=== PATIENT | female | born 1950 | race Caucasian/White ===

== ENCOUNTER 2017-05-19 15:04 | Inpatient (IN) ==
[2017-05-19] MEDS ORDERED: methylPREDNISolone SOD SUC 125 MG/2 ML VIAL IV STA (15:47)
[2017-05-19] MEDS ORDERED: SODIUM CHLORIDE 0.9% 1,000 ML IV STA ×2 (15:47→17:29)
[2017-05-19] MEDS ORDERED: methylPREDNISolone SOD SUC 125 MG/2 ML VIAL ONE (15:57)
--- NOTE | 2017-05-19 15:57 | Emergency Department Note ---
Arrival - Arrival Chief Complaint: Weakness Stated Complaint: weakness ED Nursing Triage Note: Generalized weakness and decreased PO intake [facility] Mode of Arrival: Stretcher Limitations: No Limitations Source: Patient Time Seen by Provider: 05/19/17 15:46 - History of Present Illness HPI Narrative: This 66-year-old white female presents 2 days post discharge with complaints of profound weakness and multiple minor complaints with history of discharge 2 days ago for treatment of hypotension from volume depletion by aggressive dialysis. Of note she dialyzed yesterday on her standard Saturday, , Saturday routine. She does not recall if this was an overly aggressive dialysis as she experienced previously; however, she did not began to feel bad again until after dialysis had been completed. She denies chest pain, shortness of breath, nausea, vomiting, chills, or fever. She still urinates and does relate in the past 24 hours she has felt like there is some burning with passage urine. At the moment, although mildly hypotensive, she is medically stable at rest. Onset (ago): hour(s) (Onset of symptoms 24 hours prior to presentation) Date of Last Menstrual Period: hyster Allergies/Adverse Reactions: Allergies Allergy/AdvReac Type Severity Reaction Status Date / Time codeine Allergy Unknown/Unable Verified 11/14/15 20:29 to obtain Home Medications: Home Medications Medication Instructions Recorded Confirmed Type Calcium Acetate 2 tablet PO TID W/MEALS 11/12/15 05/10/17 History Biotin 5,000 mcg PO DAILY 05/10/17 05/10/17 History Insulin Glargine [Lantus] 34 unit SUBCUT BEDTIME 05/10/17 05/10/17 History Levothyroxine Tab [Synthroid Tab] 112 mcg PO DAILY@0700 #30 tablet 05/17/17 Rx Midodrine [Proamatine] 5 mg PO TID #90 tablet 05/17/17 Rx Review of System - Review of System 12 point system: reviewed and no additional remarkable complaints except as stated - Review of System Constitutional: Present: as per HPI Musculoskeletal: Present: as per HPI Medical,Surgical,& Family Hx - Medical History Cardio: No history of: Aneurysm, Cardiac Dysrhythmia, Cerebrovascular Disease, Congenital Heart Disease, CHF, CAD, Hypertension, [place], Pacemaker, PVD, Valvular Heart Disease, Cardiovascular Problems Neurology: No history of: Brain Aneurysm, Cerebral Hemorrhage, Cerebrovascular Accident , Cerebral Palsy, Dementia, Migraine, Multiple Sclerosis, Parkinson's Disease, Peripheral Neuropathy, Seizures, TIA, Vertigo, Neurologocal Cancer Endocrine: History of: Diabetes Mellitus (IDDM), Thyroid Disorder ( HYPOTHYROIDISM) No history of: Dyslipidemia Respiratory: History of: Obstructive Sleep Apnea, Respiratory Problems (SOB) No history of: Asthma, Bronchitis, COPD, Intubation, Pulmonary Embolism, Pulmonary Hypertension, Pneumonia, Lung Cancer Renal: History of: Dialysis, Renal Failure, Renal Problems - Surgical History Cardiac Surgeries: Sugical HX of: Cardiac Catheterization (negative results in 1994) Patient Denies: Femoral-Popliteal Bypass Graft, Cardiac Surgery, Carotid Endarterectomy, Internal Defibrillator, Vascular Access Devices Thoracic Surgeries: Patient denies;: Lobectomy Neurologic Surgeries: Patient denies: Brain Aneurysm, Cerebral Hemorrhage, Neurologic Surgery HEENT Surgeries: Patient denies: Carotid Endarterectomy Abdominal Surgeries: Patient denies: Splenectomy Reproductive Surgeries: Surgical HX of;: Section, Hysterectomy Patient denies;: Genitourinary Surgery - Family History Family History: Denies;: Family Heart Disease - Social History Smoking Status: Never smoker Frequency of Alcohol Use: None Type of Drug Use: None Exam Physical Examination: GENERAL: Well developed, well nourished elderly white female in no acute distress. HEENT: Normocephalic. No trauma. Moist mucous membranes. EOMI. PERRLA. ENT NML NECK: Supple. No adenopathy. CARDIAC: Regular. No murmurs. Heart rate 82 CHEST: Clear to auscultation. No respiratory distress. O2 sat 94 per ABDOMEN: Soft. Nontender. Active bowel sounds. EXTREMITIES: No trauma. Normal ROM. No pedal edema. AV fistula right upper extremity with good thrill SKIN: No diaphoresis. No rash. Warm and dry. NEURO: Alert. Oriented 3. Motor, sensory, vibratory intact. No focal deficits. Vital Signs: Vital Signs Temperature 97.0 F L 05/19/17 15:26 Pulse Rate 79 05/19/17 16:00 Respiratory Rate 17 05/19/17 16:00 Blood Pressure 74/42 05/19/17 16:00 O2 Sat by Pulse Oximetry 100 05/19/17 16:00 Course - Reevaluation(s) Reevaluation #1: Advised patient of need for hospitalization. - Consultations Consultation #1: Discussed with hospitalist service who will admit for further evaluation treatment. Results - Labs CBC & BMP: 05/19/17 15:33 05/19/17 15:33 Labs: I reviewed the laboratory noted the elevated lactic acid, alkaline phosphatase, glucose, and bump in troponin. As well as expected renal abnormalities. Likewise noted was the infected urine. - Impressions EKG: Sinus rhythm at [address] interval and evidence of right bundle branch block with left axis deviation. Old anterior IA noted. Nonspecific ST changes with no acute injury pattern noted. - Diagnostic Findings Procedure: Chest x-ray: image reviewed by me, report reviewed by me (Borderline cardiomegaly with resolution of right pleural effusion on interval study but persistent of left pleural effusion.) Disposition Clinical Impression: Urosepsis, Cystitis, Hypotension, Left pleural effusion, Dialysis dependent renal failure, Diabetes Case discussed with: patient Disposition: Still a Patient Condition: Guarded Time of Disposition: 17:04
[2017-05-19 16:01] LABS: Basophils # 0.1 10*3/uL (0.0-0.2); Basophils % 0.7 % (0.0-0.8); Eosinophils # 0.1 10*3/uL (0.0-0.87); Eosinophils % 0.7 % (0.00-10.9); Hematocrit 41.3 VOL% (35.7-47.0); Hemoglobin 13.6 GM/DL (12.0-16.0); Immature Granulocytes % 0.4 %; Immature Granulocytes Absolute 0.03 #; Lymphocytes # 1.2 10*3/uL (1.4-4.0); Lymphocytes % 15.4 % (21.3-54.2); Mean Corpuscular HGB Conc 32.9 GM/DL (32-36); Mean Corpuscular Hemoglobin 35 PG (27-34); Mean Corpuscular Volume 105.6 FL (87-102); Mean Platelet Volume 12.4 FL (9.6-12.0); Monocytes % 13.3 % (1.7-12.7); Neutrophils # 5.3 10*3/uL (1.4-7.4); Neutrophils % 69.5 % (38.7-73.9); Platelet Count 130 T/CUMM (130-400); Red Blood Count 3.91 MC/CUMM (3.8-5.5); Red Cell Distribution Width 17.4 % (9.3-17.3); White Blood Count 7.6 T/CUMM (4-12)
[2017-05-19 16:09] LABS: INR 1.1; PT Patient Result 11.6 SECS
[2017-05-19] MEDS ORDERED: LEVOFLOXACIN INJ 750 MG in PREMIX 1 EACH IV STA (16:12)
[2017-05-19 16:13] LABS: Alanine Aminotransferase 102 U/L (13-56); Albumin 3.3 G/DL (3.4-5.0); Alkaline Phosphatase 603 U/L (45-117); Amylase 29 U/L (25-115); Aspartate Amino Transferase 55 U/L (0-37); Blood Urea Nitrogen 36 MG/DL (7-18); Calcium 9.8 MG/DL (8.5-10.1); Free T4 (Free Thyroxine) 1.51 NG/DL (0.76-1.46); Glucose 353 MG/DL (74-106); Osmolality,Calculated 289.2 MOS/KG (273-304); Potassium 5.1 MMOL/L (3.5-5.1); Sodium 134 MMOL/L (136-145)
--- NOTE | 2017-05-19 16:13 | EKG Report ---
Stationary ECG Study [facility] ER Test Date: 05/19/2017 4:11:18 PM Pat Name: JU KELLY Department: Room: Gender: F Vending Machine Technician: : 1950 Requested by: Washington Myers Order Number: [id number] Reading MD: DESMOND GUADALUPE Intervals [place] Rate: 79 P: 36 MS: 204 QRS: -82 QRSD: 145 T: 78 QT: 437 QTc: 471 Interpretive Statements SINUS RHYTHM MARKED LEFT AXIS DEVIATION RIGHT BUNDLE BRANCH BLOCK Electronically Signed On 05-19-17 16:20:24 CDT by DESMOND GUADALUPE [email or web address]
[2017-05-19] MEDS ORDERED: LEVOFLOXACIN INJ 150 ML IV ONE (16:19)
[2017-05-19 16:21] LABS: Apearance,Urine CLOUDY (Clear); Bacteria,Urine Few /HPF (Few); Bilirubin,Urine Negative (Negative); Blood, Urine Moderate mg/dL (Negative); Glucose,Urine (UA) Negative (Negative); Ketones,Urine 5 mg/dL (Negative); Nitrite,Urine Negative (Negative); Protein,Urine 30 MG/DL; RBC,Urine 672 /HPF (0-4); Urine Color Amber (Yellow); Urine Specific Gravity 1.017 (1.001-1.035); Urine Urobilinogen < 2.0 EU/DL (0.2-1.0); WBC,Urine 50838 /HPF (0-6)
[2017-05-19] MEDS ORDERED: NOREPINEPHRINE 4 MG/4 ML VIAL IV ONE (16:49)
[2017-05-19] MEDS: NOREPINEPHRINE 8 MG in SODIUM CHLORIDE 0.9% 242 ML IV SCH (16:55)
--- NOTE | 2017-05-19 17:03 | XRay Report ---
Portable chest May 19, 2017 Patient: Fever shortness of breath Comparison images dated May 16, 2017 Findings: Cardiomediastinal contours are stable. Slight worsening of the central pulmonary vasculature prominence and overall interstitial pattern. Bilateral pleural effusions, likely minimally improved on the right. No acute osseous abnormalities. Impression: 1. Increase to the central pulmonary vascular prominence and perihilar interstitial pattern suggesting early cardiac decompensation. 2. Bilateral pleural effusions, minimally improved on the right and compared with prior study PROCEDURE INTERPRETED AT [facility] DEPARTMENT OF RADIOLOGY Final Report Signed by: Miah Valdez
--- NOTE | 2017-05-19 17:44 | Hospitalist History & Physical ---
Assessment and Plan (1) Hypotension Status: Acute Assessment and plan: Pt. has history of hypotension. Hold antihypertensive meds. Place in ICU. NS Bolus. Restart midodrine. Current Visit: No (2) ESRD (end stage renal disease) on dialysis Status: Chronic Assessment and plan: Consult nephrology. Avoid nephrotoxic agents. Daily bmps. Current Visit: No (3) Diabetes mellitus Status: Acute Assessment and plan: Accuchecks achs. SSI. Diabetic diet. Current Visit: No Qualifiers: Diabetes mellitus type: type 2 Chronic kidney disease stage: on chronic dialysis (4) Generalized weakness Status: Acute Current Visit: No (5) Hypothyroid Status: Chronic Assessment and plan: Restart synthroid. Current Visit: No (6) Chest pain Status: Acute Assessment and plan: Troponin slightly elevated (could be secondary to RF). Cardiac monitoring. Will cycle enzymes and reassess. Current Visit: Yes History of Present Illness Chief complaint: weakness/hypotension History of present illness: Ms. Levin is a 66 year old white female with a history of diabetes, hypotension, end-stage renal disease on dialysis, hypo-thyroidism that presented to the ED today for further evaluation of weakness and hypotension. Patient was just recently discharged 2 days ago after a 6 day hospital stay for similar complaints. Pt. states that when she was discharged on Saturday she felt fine. Patient is an end stage renal disease patient and states she went Saturday. She was in her usual state of health until last night when she became very weak. She reports that became short of breath and she couldn't walk. Pt. also reports midsternal chest pain which she states goes into the neck. She describes the pain as intermittent and states she has had this particular pain for quite some time. She reports chills but denies fever, night sweats, n/v/ or abdominal pain. Additionally, she reports taking her blood pressure and having a "low pressure." Pt. came in for evaluation and was found to be hypotensive. Labs in ED revealed bun/creatinine of 36/4.4 (improved from last admission), lactic acid of 4.5, troponin of 0.060, and an elevated glucose of 353. Pt.'s case was discussed with Dr. Braswell and Dr. De Leon. The patient will be admitted to the hospitalist service for further evaluation and treatment. She will be placed in the ICU for close monitoring. Home Medications Medication Instructions Recorded Confirmed Type Calcium Acetate 2 tablet PO TID W/MEALS 11/12/15 05/10/17 History Biotin 5,000 mcg PO DAILY 05/10/17 05/10/17 History Insulin Glargine [Lantus] 34 unit SUBCUT BEDTIME 05/10/17 05/10/17 History Levothyroxine Tab [Synthroid Tab] 112 mcg PO DAILY@0700 #30 tablet 05/17/17 Rx Midodrine [Proamatine] 5 mg PO TID #90 tablet 05/17/17 Rx Allergies Allergy/AdvReac Type Severity Reaction Status Date / Time codeine Allergy Unknown/Unable Verified 11/14/15 20:29 to obtain Medical,Surgical,& Family Hx - Medical History Cardio: No history of: Aneurysm, Cardiac Dysrhythmia, Cerebrovascular Disease, Congenital Heart Disease, CHF, CAD, Hypertension, [place], Pacemaker, PVD, Valvular Heart Disease, Cardiovascular Problems Neurology: No history of: Brain Aneurysm, Cerebral Hemorrhage, Cerebrovascular Accident , Cerebral Palsy, Dementia, Migraine, Multiple Sclerosis, Parkinson's Disease, Peripheral Neuropathy, Seizures, TIA, Vertigo, Neurologocal Cancer Endocrine: History of: Diabetes Mellitus (IDDM), Thyroid Disorder ( HYPOTHYROIDISM) No history of: Dyslipidemia Respiratory: History of: Obstructive Sleep Apnea, Respiratory Problems (SOB) No history of: Asthma, Bronchitis, COPD, Intubation, Pulmonary Embolism, Pulmonary Hypertension, Pneumonia, Lung Cancer Renal: History of: Dialysis, Renal Failure, Renal Problems - Surgical History Cardiac Surgeries: Sugical HX of: Cardiac Catheterization (negative results in 1994) Patient Denies: Femoral-Popliteal Bypass Graft, Cardiac Surgery, Carotid Endarterectomy, Internal Defibrillator, Vascular Access Devices Thoracic Surgeries: Patient denies;: Lobectomy Neurologic Surgeries: Patient denies: Brain Aneurysm, Cerebral Hemorrhage, Neurologic Surgery HEENT Surgeries: Patient denies: Carotid Endarterectomy Abdominal Surgeries: Patient denies: Splenectomy Reproductive Surgeries: Surgical HX of;: Section, Hysterectomy Patient denies;: Genitourinary Surgery - Family History Family History: Denies;: Family Heart Disease - Social History Smoking Status: Never smoker Frequency of Alcohol Use: None Type of Drug Use: None Marital Status: Single Lives With:: Alone Functional capacity: uses cane/walker Review of systems: 10 point system reviewed - Constitutional Constitutional: Present: chills, weakness. Absent: fever(s), night sweats - EENT Eyes: Absent: blurry vision Ears: Absent: decreased hearing Nose, mouth and throat: Absent: headache(s) - Cardiovascular Cardiovascular: Present: chest pain at rest, dyspnea on exertion. Absent: edema - Respiratory Respiratory: Present: dyspnea on exertion - Gastrointestinal Gastrointestinal: Absent: abdominal pain, nausea, vomiting - Genitourinary Genitourinary: Absent: difficulty urinating (no difficulty urinating but patient did note burning sensation), urinary frequency - Musculoskeletal Musculoskeletal: Absent: back pain - Neurological Neurological: Absent: confusion, dizziness - Psychiatric Psychiatric: Present: anxiety Exam - Constitutional Vitals: Period Temp Pulse Resp BP Sys/Bustos Pulse Ox Last 24 Hr 97.0 F-97.0 F 79-82 17-20 74-81/42-55 94-100 General appearance: normal weight, mild distress - Head Head exam: Present: normal inspection, normocephalic - Eye Eye exam: Present: EOMI. Absent: scleral icterus Pupils: Present: TIM - Neck Neck exam: Present: normal inspection - Respiratory Respiratory exam: Present: clear to auscultation bilaterally. Absent: wheezes - Cardiovascular Cardiovascular exam: Present: regular rate and rhythm - GI/Abdominal GI/Abdominal exam: Present: normal bowel sounds, soft. Absent: tenderness - Extremities Exam Extremities exam: Present: normal capillary refill, full ROM. Absent: edema - Neurological Exam Neurological exam: Present: alert, oriented X3 - Psychiatric Psychiatric exam: Present: normal affect, normal mood - Skin Skin exam: Present: normal color, warm, dry Results - Labs CBC & BMP: 05/19/17 15:33 05/19/17 15:33 Lab Results: I have reviewed the past 24 hour labs
[2017-05-19] MEDS ORDERED: ACETAMINOPHEN 325 MG TABLET PO PRN (17:49)
[2017-05-19] MEDS ORDERED: SODIUM CHLORIDE 0.9% 1,000 ML IV ONE (17:49)
[2017-05-19] MEDS ORDERED: GLUCAGON 1 MG VIAL IM PRN (17:49)
[2017-05-19] MEDS: PIPERACILLIN/TAZOBACTAM 3,375 MG in SODIUM CHLORIDE 0.9% 100 ML IV SCH (19:08)
[2017-05-19] MEDS: ENOXAPARIN 30 MG/0.3 ML SYRINGE SUBCUT SCH (19:08)
[2017-05-19] MEDS: INSULIN REGULAR 100 UNIT/ML SUBCUT SCH (21:52)
[2017-05-19] MEDS: INSULIN GLARGINE 100 UNIT/ML SUBCUT SCH (21:52)
[2017-05-19] MEDS: MIDODRINE 5 MG TABLET PO SCH (22:48)
[2017-05-20] MEDS ORDERED: GENTAMICIN INJ 160 MG in SODIUM CHLORIDE 0.9% 100 ML IV ONE
[2017-05-20] MEDS: MIDODRINE 5 MG TABLET PO SCH ×4 (00:35→21:36)
[2017-05-20] MEDS: NOREPINEPHRINE 8 MG in SODIUM CHLORIDE 0.9% 242 ML IV SCH ×3 (01:11→17:11)
[2017-05-20] MEDS: PIPERACILLIN/TAZOBACTAM 3,375 MG in SODIUM CHLORIDE 0.9% 100 ML IV SCH ×2 (06:32→19:02)
[2017-05-20] MEDS: LEVOTHYROXINE 112 MCG TABLET PO SCH (06:32)
[2017-05-20] MEDS: INSULIN REGULAR 100 UNIT/ML SUBCUT SCH ×4 (08:01→21:51)
[2017-05-20] MEDS: CALCIUM ACETATE 667 MG CAPSULE PO SCH ×3 (08:04→17:16)
--- NOTE | 2017-05-20 08:08 | CT Report ---
Exam: CT head without intravenous contrast Clinical History: 66-year-old female, altered level consciousness, confusion Technique: Axial computed tomography images of the head/brain without intravenous contrast Comparison: No relevant comparisons Findings: Brain: Unremarkable. Valdez-white matter distinction maintained. No mass effect. No intra or extra-axial hemorrhage. Ventricles: Unremarkable. No ventriculomegaly. Bones/joints: Calvarium is intact Soft tissues: Unremarkable Sinuses: No active paranasal sinus process Mastoid air cells: Unremarkable visualized. Impression: 1. No acute intracranial abnormality PROCEDURE INTERPRETED AT [facility] DEPARTMENT OF RADIOLOGY Final Report Signed by: Miah Valdez
[2017-05-20] MEDS ORDERED: NON-FORMULARY MEDICATION (Biotin [Biotin] 5,000 MCG) PO SCH (09:00)
--- NOTE | 2017-05-20 09:41 | Hospitalist Progress Note ---
Assessment and Plan (1) Diabetes mellitus Status: Acute Assessment and plan: Lantus and SSI Current Visit: No Qualifiers: Diabetes mellitus type: type 2 Chronic kidney disease stage: on chronic dialysis (2) ESRD (end stage renal disease) on dialysis Status: Chronic Assessment and plan: Nephrology assisting Current Visit: No (3) Hypothyroid Status: Chronic Assessment and plan: Synthroid, decreased during her last admission last week Current Visit: No (4) Generalized weakness Status: Acute Current Visit: No (5) Hypotension Status: Acute Assessment and plan: Chronic issue Continue midodrine Continue to wean levophed Current Visit: No (6) Chest pain Status: Acute Assessment and plan: Troponin stable Denies chest pain Continue to monitor Current Visit: Yes (7) Urinary tract infection Status: Acute Assessment and plan: Moran removed today Continue zosyn f/u urine culture Current Visit: Yes Hospitalist: Subjective Interval history: Overnight patient refused to talk to staff, leading her to get a CT head, which was normal. Today she is sitting up on the side of the bed eating breakfast. Still on a small amount levophed. Exam - Constitutional Vitals: Period Temp Pulse Resp BP Sys/Bustos Pulse Ox Last 24 Hr 97.0 F-98.1 F 58-101 15-27 70-150/25-61 94-100 General appearance: normal weight - Head Head exam: Present: normocephalic, atraumatic - Eye Eye exam: Present: EOMI Pupils: Present: TIM - ENT ENT exam: Present: normal exam - Neck Neck exam: Present: normal inspection - Respiratory Respiratory exam: Present: clear to auscultation bilaterally. Absent: rhonchi, wheezes - Cardiovascular Cardiovascular exam: Present: regular rate and rhythm - GI/Abdominal GI/Abdominal exam: Present: normal bowel sounds, soft. Absent: tenderness, rebound - Extremities Exam Extremities exam: Present: normal inspection - Back Exam Back exam: Present: normal inspection - Neurological Exam Neurological exam: Present: alert, oriented X3 - Psychiatric Psychiatric exam: Present: normal affect, normal mood - Skin Skin exam: Present: warm, intact Results - Labs CBC & BMP: 05/19/17 15:33 05/19/17 15:33
[2017-05-20 11:33] LABS: Basophils # 0.1 10*3/uL (0.0-0.2); Basophils % 0.3 % (0.0-0.8); Hematocrit 41.1 VOL% (35.7-47.0); Hemoglobin 13.8 GM/DL (12.0-16.0); Immature Granulocytes % 1.5 %; Immature Granulocytes Absolute 0.27 #; Lymphocytes # 1.4 10*3/uL (1.4-4.0); Lymphocytes % 7.7 % (21.3-54.2); Mean Corpuscular HGB Conc 33.6 GM/DL (32-36); Mean Corpuscular Hemoglobin 34 PG (27-34); Mean Corpuscular Volume 102.2 FL (87-102); Mean Platelet Volume 11.6 FL (9.6-12.0); Monocytes # 1.5 10*3/uL (0.11-0.8); Monocytes % 8.4 % (1.7-12.7); Neutrophils # 14.4 10*3/uL (1.4-7.4); Neutrophils % 82.1 % (38.7-73.9); Platelet Count 148 T/CUMM (130-400); Red Blood Count 4.02 MC/CUMM (3.8-5.5); Red Cell Distribution Width 17.3 % (9.3-17.3); White Blood Count 17.6 T/CUMM (4-12)
[2017-05-20 12:25] LABS: Calcium 9.3 MG/DL (8.5-10.1); Potassium 4.9 MMOL/L (3.5-5.1)
--- NOTE | 2017-05-20 12:37 | Nephrology Consult Note ---
History of Present Illness Chief complaint: ESRD History of present illness: Ms. Lvein is a 66 year old female with ESRD secondary to diabetes. She presented with generalized weakness and hypotension. She has had chronic hypotension and is on midodrine. She had transient chest discomfort prior to admission. She currently denies chest pain or shortness of breath. Home Medications Medication Instructions Recorded Confirmed Type Calcium Acetate 2 tablet PO TID W/MEALS 11/12/15 05/10/17 History Biotin 5,000 mcg PO DAILY 05/10/17 05/10/17 History Insulin Glargine [Lantus] 34 unit SUBCUT BEDTIME 05/10/17 05/10/17 History Levothyroxine Tab [Synthroid Tab] 112 mcg PO DAILY@0700 #30 tablet 05/17/17 Rx Midodrine [Proamatine] 5 mg PO TID #90 tablet 05/17/17 Rx Allergies Allergy/AdvReac Type Severity Reaction Status Date / Time codeine Allergy Unknown/Unable Verified 11/14/15 20:29 to obtain cotton Allergy Unknown/Unable Uncoded 05/19/17 17:48 to obtain Medical,Surgical,& Family Hx - Medical History Cardio: No history of: Aneurysm, Cardiac Dysrhythmia, Cerebrovascular Disease, Congenital Heart Disease, CHF, CAD, Hypertension, [place], Pacemaker, PVD, Valvular Heart Disease, Cardiovascular Problems Neurology: No history of: Brain Aneurysm, Cerebral Hemorrhage, Cerebrovascular Accident , Cerebral Palsy, Dementia, Migraine, Multiple Sclerosis, Parkinson's Disease, Peripheral Neuropathy, Seizures, TIA, Vertigo, Neurologocal Cancer HEENT: History of: Ear Problem (stops up), HEENT Problems (states problem swallowing, and sore throat) Endocrine: History of: Diabetes Mellitus (IDDM), Thyroid Disorder ( HYPOTHYROIDISM) No history of: Dyslipidemia Respiratory: History of: Obstructive Sleep Apnea, Respiratory Problems (SOB) No history of: Asthma, Bronchitis, COPD, Intubation, Pulmonary Embolism, Pulmonary Hypertension, Pneumonia, Lung Cancer Renal: History of: Dialysis, Renal Failure, Renal Problems Gastrointestinal: History of: GERD Musculoskeletal: History of: Back/Neck Problems (back surgery x2) No history of: Amputation - Surgical History Cardiac Surgeries: Sugical HX of: Cardiac Catheterization (negative results in 1994) Patient Denies: Femoral-Popliteal Bypass Graft, Cardiac Surgery, Carotid Endarterectomy, Internal Defibrillator, Vascular Access Devices Thoracic Surgeries: Patient denies;: Lobectomy Neurologic Surgeries: Patient denies: Brain Aneurysm, Cerebral Hemorrhage, Neurologic Surgery HEENT Surgeries: Patient denies: Carotid Endarterectomy Abdominal Surgeries: Patient denies: Abdominal Surgery, Splenectomy Reproductive Surgeries: Surgical HX of;: Section, Hysterectomy Patient denies;: Genitourinary Surgery Orthopedic Surgeries: Patient denies;: Implanted Devices - Family History Family History: Denies;: Family Heart Disease - Social History Smoking Status: Never smoker Frequency of Alcohol Use: None Type of Drug Use: None Review of Systems 12 point system: reviewed and no additional remarkable complaints except as stated Exam - Vital Signs Vital signs: Period Temp Pulse Resp BP Sys/Bustos Pulse Ox Last 24 Hr 97.0 F-98.1 F 58-101 15-27 70-150/25-61 94-100 Exam: Gen.: Alert and oriented x3. ENT: Pupils equal round reactive to light. EOMs intact. Mucous membranes moist. Neck: Supple. No JVD or bruit. Cardiovascular: Regular rate and rhythm. No murmur rub or gallop Lungs: Clear Abdomen: Soft. Nontender. Positive bowel sounds. No organomegaly Extremities: No edema Results - Labs CBC & BMP: 05/20/17 10:45 05/20/17 10:45 Assessment and Plan (1) ESRD (end stage renal disease) on dialysis Status: Chronic Assessment and plan: 66-year-old woman with: * ESRD. Dialyzed yesterday. Volume status normal * Hypotension. This is likely due to autonomic neuropathy. Systolic pressure is now 112. Pressors are being tapered. Continue midodrine * Diabetes mellitus * Chest pain. This was transient and has now resolved Current Visit: No (2) Chest pain Status: Acute Current Visit: Yes (3) Diabetes mellitus Status: Acute Current Visit: No Qualifiers: Diabetes mellitus type: type 2 Chronic kidney disease stage: on chronic dialysis (4) Generalized weakness Status: Acute Current Visit: No (5) Hypotension Status: Acute Current Visit: No
[2017-05-20] MEDS: BIOTIN 5000 MCG PO SCH (14:53)
[2017-05-20] MEDS: ENOXAPARIN 30 MG/0.3 ML SYRINGE SUBCUT SCH (17:16)
[2017-05-20] MEDS: INSULIN GLARGINE 100 UNIT/ML SUBCUT SCH (21:51)
[2017-05-21] MEDS: LEVOTHYROXINE 112 MCG TABLET PO SCH (07:17)
[2017-05-21] MEDS: PIPERACILLIN/TAZOBACTAM 3,375 MG in SODIUM CHLORIDE 0.9% 100 ML IV SCH (07:17)
[2017-05-21] MEDS: INSULIN REGULAR 100 UNIT/ML SUBCUT SCH ×4 (08:10→21:45)
[2017-05-21] MEDS: CALCIUM ACETATE 667 MG CAPSULE PO SCH ×3 (08:11→17:02)
[2017-05-21] MEDS ORDERED: IRON SUCROSE 100 MG/5 ML VIAL IV SCH (09:00)
[2017-05-21] MEDS ORDERED: LEVOFLOXACIN INJ 500 MG in PREMIX 1 EACH IV SCH (09:00)
--- NOTE | 2017-05-21 09:03 | Hospitalist Progress Note ---
Assessment and Plan (1) ESRD (end stage renal disease) on dialysis Status: Chronic Assessment and plan: The patient is having dialysis today. She continues to have difficulty with hypotension. The patient complains of nausea and abdominal pain. We will request abdominal ultrasound and recheck liver function testing tomorrow. Will recheck lipase tomorrow. I am going to discontinue Zosyn and start Levaquin to treat the patient's urinary tract infection. Urine cultures now growing gram- negative rods. The patient had hypoglycemia this morning so I am going to reduce her Lantus at night. Current Visit: No (2) Nausea & vomiting Status: Resolved Current Visit: No Hospitalist: Subjective Interval history: Mrs. Levin complains of nausea today with some right upper quadrant tenderness. The patient had cholecystectomy about 12 years ago. The patient has hypotension which is orthostatic and thought to be due to diabetic autonomic neuropathy. The patient is starting dialysis now and is using Levophed to control her hypotension. The patient has no fever or chills. Exam - Constitutional Vitals: Period Temp Pulse Resp BP Sys/Bustos Pulse Ox Last 24 Hr 97.3 F-98.4 F 60-67 13-65 75-133/31-98 93-99 Exam: Constitutional System: Mild distress. No tremulousness. Complains of nausea Head: Normocephalic, atraumatic. Ears, Nose and Throat System: No evidence of Otitis or Mastoiditis. No epistaxis or discharge Eyes System: Pupils equal, round, and reactive. Extraocular muscles intact. Neck: Supple, without adenopathy, No jugular venous distention. No thyromegaly , neck mass, or prior surgery apparent. Respiratory System: Chest clear to auscultation. Cardiovascular System: Heart with regular rate and rhythm. No murmur. GI System: Abdomen soft, mild tenderness right upper quadrant. Hypo-active bowel sounds present. Musculoskeletal System: limbs with no pedal edema. Full distal pulses. Neurological System: No discernable sensory deficit. No aphasia Psychiatric System: Conversation is rational Capillary Refill: less than 2 sec Results - Labs CBC & BMP: 05/20/17 10:45 05/20/17 10:45 Lab Results: I have reviewed the past 24 hour labs Labs: Bilirubin 2.1
[2017-05-21] MEDS: ONDANSETRON 4 MG/2 ML VIAL IV PRN (09:26)
[2017-05-21 09:46] LABS: Basophils % 0.1 % (0.0-0.8); Hematocrit 41.8 VOL% (35.7-47.0); Hemoglobin 14.5 GM/DL (12.0-16.0); Immature Granulocytes % 0.9 %; Lymphocytes # 1.1 10*3/uL (1.4-4.0); Mean Corpuscular HGB Conc 34.7 GM/DL (32-36); Mean Corpuscular Hemoglobin 35 PG (27-34); Mean Corpuscular Volume 100.7 FL (87-102); Mean Platelet Volume 11.9 FL (9.6-12.0); Monocytes # 1.2 10*3/uL (0.11-0.8); Monocytes % 5.5 % (1.7-12.7); NRBC # 0.12 10*3/uL; Neutrophils # 19.8 10*3/uL (1.4-7.4); Neutrophils % 88.5 % (38.7-73.9); Platelet Count 117 T/CUMM (130-400); Red Blood Count 4.15 MC/CUMM (3.8-5.5); Red Cell Distribution Width 17.4 % (9.3-17.3); White Blood Count 22.4 T/CUMM (4-12)
[2017-05-21] MEDS: MIDODRINE 5 MG TABLET PO SCH ×3 (10:07→21:45)
[2017-05-21] MEDS: BIOTIN 5000 MCG PO SCH (10:07)
[2017-05-21 10:25] LABS: Band Neutrophils 2 % (0-10); Hypochromasia 1+; Lymphocytes 4 % (20-55); Macrocytosis 1+; Nucleated Red Blood Cells 1 (0-5); Segmented Neutrophils 88 % (50-85); Total Cells Counted 100
[2017-05-21 10:26] LABS: Platelet Estimate Adequate
[2017-05-21 10:27] LABS: Calcium 8.9 MG/DL (8.5-10.1); Magnesium 2.4 MG/DL (1.8-2.4); Osmolality,Calculated 289.3 MOS/KG (273-304)
[2017-05-21 10:30] LABS: Lactic Acid 1.7 MMOL/L (0.4-2.0)
--- NOTE | 2017-05-21 11:47 | Nephrology Progress Note ---
Nephrology - PN: Subj Interval history: Patient seen on hemodialysis, she is tolerating this well will continue her Levophed. She did have a systolic of around 70 during her dialysis treatment it is improved to 150 now. The patient is on antibiotic therapy for possible UTI. Assessment/plan 1. End-stage renal disease-continue hemodialysis 2. Diabetes mellitus continue her hypoglycemic regimen 3. Hypotension-this patient has a preserved left ventricular ejection fraction however she does have grade 3 diastolic dysfunction as well as severe pulmonary hypertension 4. UTI continue antibiotics. Exam (PN)-Nephrology - Vital Signs Vital signs: Period Temp Pulse Resp BP Sys/Bustos Pulse Ox Last 24 Hr 97.3 F-98.4 F 60-66 13-65 75-133/31-98 93-99 - Lab 05/21/17 09:42 05/21/17 09:42 Most recent lab results Calcium 8.9 MG/DL (8.5-10.1) 05/21/17 09:42 Magnesium 2.4 MG/DL (1.8-2.4) 05/21/17 09:42
[2017-05-21] MEDS: NOREPINEPHRINE 8 MG in SODIUM CHLORIDE 0.9% 242 ML IV SCH (16:58)
[2017-05-21] MEDS: ENOXAPARIN 30 MG/0.3 ML SYRINGE SUBCUT SCH (17:02)
--- NOTE | 2017-05-21 18:06 | Ultrasound Report ---
Exam: US abdomen Date:05/21/2017 8:58 AM Indication: Right upper quadrant pain, nausea Comparison: None Findings: Liver: Measures up to 13.6 cm with no definite focal lesions. Hepatic parenchymal echogenicity appears within normal limits. Liver contour does not appear nodular. Gallbladder: Not visualized, compatible with history of cholecystectomy CBD: 0.5 cm Pancreas: Partially obscured and otherwise poorly evaluated. Kidneys Right kidney: 7 x 3.3 x 3.1 cm Left kidney: 8.1 x 3.1 x 2.8 cm Renal cortical echogenicity and thickness are within normal limits bilaterally. There is no hydronephrosis. IVC: Patent Aorta: Obscured Spleen: Appears normal as visualized measuring 9 x 4.3 x 3.6 cm. Incidental note is made of a small right pleural effusion. Impression: 1. Prior cholecystectomy. No acute sonographic abnormality in the right upper quadrant. 2. Multiple midline structures obscured as detailed above. 3. Small right pleural effusion. PROCEDURE INTERPRETED AT [facility] DEPARTMENT OF RADIOLOGY Final Report Signed by: Kailash Watson
[2017-05-21] MEDS: INSULIN GLARGINE 100 UNIT/ML SUBCUT SCH (22:14)
[2017-05-22] MEDS: LEVOTHYROXINE 112 MCG TABLET PO SCH (06:54)
[2017-05-22] MEDS: INSULIN REGULAR 100 UNIT/ML SUBCUT SCH ×4 (07:44→20:21)
[2017-05-22] MEDS: BIOTIN 5000 MCG PO SCH (08:11)
[2017-05-22] MEDS: DEXTROSE 50% 25 GM/50 ML SYRINGE IV PRN ×2 (08:12→20:23)
[2017-05-22] MEDS: CALCIUM ACETATE 667 MG CAPSULE PO SCH ×3 (08:12→16:12)
[2017-05-22] MEDS: MIDODRINE 5 MG TABLET PO SCH ×3 (08:12→23:25)
[2017-05-22 08:25] LABS: Calcium 9.2 MG/DL (8.5-10.1)
[2017-05-22 08:27] LABS: Magnesium 2.5 MG/DL (1.8-2.4)
--- NOTE | 2017-05-22 08:55 | Nephrology Progress Note ---
Nephrology - PN: Subj Interval history: Patient feels well she denies nausea or vomiting. Review of systems pulmonary she denies shortness of breath Physical exam general the patient is in no acute distress Assessment/plan 1. End-stage renal disease-we will continue hemodialysis support 2. Diabetes mellitus 3. Hypotension-patient continues to require small dose of levo fed for blood pressure support, if the patient's blood pressure does not improve in the next few days on IV antibiotics I would be inclined to ask cardiology to evaluate. 4. UTI patient continues on IV antibiotics, she did have E. coli greater than 100,000 CFU grow Exam (PN)-Nephrology - Vital Signs Vital signs: Period Temp Pulse Resp BP Sys/Bustos Pulse Ox Last 24 Hr 97.4 F-98.4 F 57-77 11-27 78-170/38-93 90-100 - Lab 05/21/17 09:42 05/22/17 08:00 Most recent lab results Calcium 9.2 MG/DL (8.5-10.1) 05/22/17 08:00 Magnesium 2.5 MG/DL (1.8-2.4) H 05/22/17 08:00
[2017-05-22 13:18] LABS: Basophils % 0.1 % (0.0-0.8); Eosinophils % 0.1 % (0.00-10.9); Hematocrit 42.5 VOL% (35.7-47.0); Hemoglobin 14.6 GM/DL (12.0-16.0); Immature Granulocytes % 0.6 %; Lymphocytes # 1.8 10*3/uL (1.4-4.0); Lymphocytes % 11.6 % (21.3-54.2); Mean Corpuscular HGB Conc 34.4 GM/DL (32-36); Mean Corpuscular Hemoglobin 35 PG (27-34); Mean Corpuscular Volume 101.9 FL (87-102); Mean Platelet Volume 12.2 FL (9.6-12.0); Monocytes # 1.6 10*3/uL (0.11-0.8); Monocytes % 9.8 % (1.7-12.7); NRBC # 0.07 10*3/uL; Neutrophils # 12.3 10*3/uL (1.4-7.4); Neutrophils % 77.8 % (38.7-73.9); Platelet Count 97 T/CUMM (130-400); Red Blood Count 4.17 MC/CUMM (3.8-5.5); Red Cell Distribution Width 17.4 % (9.3-17.3); White Blood Count 15.8 T/CUMM (4-12)
[2017-05-22 13:38] LABS: Albumin 2.8 G/DL (3.4-5.0); Bilirubin,Total 1.6 MG/DL (0.2-1.0); Calcium 9.2 MG/DL (8.5-10.1); Total Protein 6.3 G/DL (6.4-8.3)
[2017-05-22 13:39] LABS: Osmolality,Calculated 275.2 MOS/KG (273-304); Potassium 5.2 MMOL/L (3.5-5.1)
[2017-05-22 13:40] LABS: Platelet Estimate Decreased
--- NOTE | 2017-05-22 15:06 | Hospitalist Progress Note ---
Assessment and Plan (1) ESRD (end stage renal disease) on dialysis Status: Chronic Assessment and plan: The patient is having dialysis today. She continues to have difficulty with hypotension. The patient complains of nausea and abdominal pain. I am going to simplify her treatment for E. coli urinary tract infection with oral Levaquin. We will continue dialysis per schedule. Will recheck random cortisol level in the morning. Current Visit: No (2) Nausea & vomiting Status: Resolved Current Visit: No Hospitalist: Subjective Interval history: The patient is resting quietly in the room today. She still requires a low dose of Levophed in order to maintain systolic blood pressure while sitting. The patient had hypoglycemia this morning. Exam - Constitutional Vitals: Period Temp Pulse Resp BP Sys/Bustos Pulse Ox Last 24 Hr 97.4 F-98.4 F 57-66 7-24 74-136/38-81 90-100 Exam: Constitutional System: Mild distress. No tremulousness. Complains of nausea Head: Normocephalic, atraumatic. Ears, Nose and Throat System: No evidence of Otitis or Mastoiditis. No epistaxis or discharge Eyes System: Pupils equal, round, and reactive. Extraocular muscles intact. Neck: Supple, without adenopathy, No jugular venous distention. No thyromegaly , neck mass, or prior surgery apparent. Respiratory System: Chest clear to auscultation. Cardiovascular System: Heart with regular rate and rhythm. No murmur. GI System: Abdomen soft, mild tenderness right upper quadrant. Hypo-active bowel sounds present. Musculoskeletal System: limbs with no pedal edema. Full distal pulses. Neurological System: No discernable sensory deficit. No aphasia Psychiatric System: Conversation is rational Results - Labs CBC & BMP: 05/22/17 13:11 05/22/17 08:00 Lab Results: I have reviewed the past 24 hour labs
[2017-05-22] MEDS: NOREPINEPHRINE 8 MG in SODIUM CHLORIDE 0.9% 242 ML IV SCH (16:07)
[2017-05-22] MEDS: LEVOFLOXACIN 500 MG TABLET PO SCH (16:11)
[2017-05-22] MEDS: ENOXAPARIN 30 MG/0.3 ML SYRINGE SUBCUT SCH (17:43)
[2017-05-22] MEDS: INSULIN GLARGINE 100 UNIT/ML SUBCUT SCH (20:22)
[2017-05-22] MEDS: ONDANSETRON 4 MG/2 ML VIAL IV PRN (20:23)
[2017-05-23] MEDS: NOREPINEPHRINE 8 MG in SODIUM CHLORIDE 0.9% 242 ML IV SCH (06:39)
[2017-05-23] MEDS: LEVOTHYROXINE 112 MCG TABLET PO SCH (07:04)
[2017-05-23] MEDS ORDERED: LEVOFLOXACIN INJ 250 MG in PREMIX 1 EACH IV SCH (09:00)
[2017-05-23] MEDS: MIDODRINE 5 MG TABLET PO SCH ×3 (10:30→22:12)
[2017-05-23] MEDS: BIOTIN 5000 MCG PO SCH (10:30)
[2017-05-23] MEDS: INSULIN REGULAR 100 UNIT/ML SUBCUT SCH ×4 (10:35→22:13)
[2017-05-23] MEDS: CALCIUM ACETATE 667 MG CAPSULE PO SCH ×4 (10:36→22:07)
--- NOTE | 2017-05-23 11:56 | Nephrology Progress Note ---
Nephrology - PN: Subj Interval history: Patient is complaining of nausea and diarrhea. Review of systems pulmonary she denies shortness of breath Physical exam general the patient is chronically ill-appearing, she has no pitting edema Assessment/plan 1. End-stage renal disease-patient was dialyzed today, she ended her treatment 750 cc positive fluid balance due to problems with hypotension during her treatment 2. Diabetes mellitus-patient had some hypoglycemia will adjust her sliding scale insulin 3. Hypotension-patient remains on Levophed, her cortisol level appears to be normal 4. Urinary tract infection-we will continue antibiotic therapy Exam (PN)-Nephrology - Vital Signs Vital signs: Period Temp Pulse Resp BP Sys/Bustos Pulse Ox Last 24 Hr 97.2 F-98.1 F 58-67 6-21 65-141/21-77 90-97 - Lab 05/22/17 13:11 05/22/17 08:00 Most recent lab results Calcium 9.2 MG/DL (8.5-10.1) 05/22/17 08:00 Magnesium 2.5 MG/DL (1.8-2.4) H 05/22/17 08:00
--- NOTE | 2017-05-23 14:43 | Hospitalist Progress Note ---
Assessment and Plan (1) ESRD (end stage renal disease) on dialysis Status: Chronic Assessment and plan: The patient is having dialysis today. She continues to have difficulty with hypotension. The patient complains of less nausea and abdominal pain than on previous days. I am going to simplify her treatment for E. coli urinary tract infection with oral Levaquin. We will continue dialysis per schedule. Cortisol level showed no evidence of adrenal insufficiency Current Visit: No Hospitalist: Subjective Interval history: The patient is resting quietly in her room today. She did not have any further hypoglycemia after adjustment of insulin yesterday. The patient has less nausea and tolerated dialysis this morning. She remains on low-dose Levophed. Exam - Constitutional Vitals: Period Temp Pulse Resp BP Sys/Bustos Pulse Ox Last 24 Hr 97.2 F-98.2 F 58-74 6-21 65-141/21-77 90-97 Exam: Constitutional System: Mild distress. No tremulousness. Complains of nausea Head: Normocephalic, atraumatic. Ears, Nose and Throat System: No evidence of Otitis or Mastoiditis. No epistaxis or discharge Eyes System: Pupils equal, round, and reactive. Extraocular muscles intact. Neck: Supple, without adenopathy, No jugular venous distention. No thyromegaly , neck mass, or prior surgery apparent. Respiratory System: Chest clear to auscultation. Cardiovascular System: Heart with regular rate and rhythm. No murmur. GI System: Abdomen soft, mild tenderness right upper quadrant. Hypo-active bowel sounds present. Musculoskeletal System: limbs with no pedal edema. Full distal pulses. Neurological System: No discernable sensory deficit. No aphasia Psychiatric System: Conversation is rational Results - Labs CBC & BMP: 05/22/17 13:11 05/22/17 08:00 Lab Results: I have reviewed the past 24 hour labs
[2017-05-23] MEDS: CLOTRIMAZOLE 1% CREAM 15 GM TUBE TOP SCH ×2 (15:28→22:12)
[2017-05-24] MEDS: NOREPINEPHRINE 8 MG in SODIUM CHLORIDE 0.9% 242 ML IV SCH ×6 (05:01→20:20)
[2017-05-24] MEDS: LEVOTHYROXINE 112 MCG TABLET PO SCH (06:55)
[2017-05-24] MEDS: INSULIN REGULAR 100 UNIT/ML SUBCUT SCH ×4 (08:45→21:25)
[2017-05-24] MEDS: CALCIUM ACETATE 667 MG CAPSULE PO SCH ×2 (08:49→19:44)
[2017-05-24] MEDS: FLUDROCORTISONE 0.1 MG TABLET PO SCH ×2 (08:50→22:34)
[2017-05-24] MEDS: CLOTRIMAZOLE 1% CREAM 15 GM TUBE TOP SCH ×3 (08:50→23:51)
[2017-05-24] MEDS: MIDODRINE 5 MG TABLET PO SCH ×3 (08:50→22:35)
--- NOTE | 2017-05-24 10:47 | Event Note ---
Procedure note: placement of right central venous line via internal jugular approach. Indication the patient is dependent upon levo fed and has tenuous peripheral IV access. Informed consent was obtained from the patient. The patient was draped in a sterile fashion. Sterile hygiene hand technique was used. Megan LAYTON assisted using sterile hand technique. The SonoSite was used to identify the right internal jugular vein. Local anesthetic was placed using lidocaine and 32-gauge needle. The right internal jugular vein was entered with a large needle and a 3 lm central vascular catheter was placed using modified Seldinger technique. The patient tolerated the procedure well without any apparent complication. The catheter flushed easily. The site was dressed by the nursing staff. Chest x-ray has been ordered but not yet interpreted.
--- NOTE | 2017-05-24 10:50 | Hospitalist Progress Note ---
Assessment and Plan (1) ESRD (end stage renal disease) on dialysis Status: Chronic Assessment and plan: The patient had placement of right internal jugular 3 lm catheter today. We will continue Levophed as required through the catheter. I am going to add adrenal mineral or corticoid today in hopes of improving her baseline blood pressure. We will also increased dose of midodrine. I coordinated care with Dr. Mark Ibanez. I interpreted the post operative chest x-ray and central venous catheters in good placement without any evidence of pneumothorax. Current Visit: No Hospitalist: Subjective Interval history: Mrs. Levin continues to be dependent upon pressor support to maintain blood pressure. The patient's IV infiltrated during the night and I coordinated care with the patient's charge nurse. The patient became gaona and ashen and decreased blood pressure off levo fed correlated with clinical deterioration. The patient now has a tenuous 22-gauge IV. She is able to sit up. Mentation is baseline. The patient states that she felt very poorly when she was hypotensive. Exam - Constitutional Vitals: Period Temp Pulse Resp BP Sys/Bustos Pulse Ox Last 24 Hr 97.0 F-98.4 F 63-83 12-24 56-115/ 93-99 Exam: Constitutional System: Mild distress. No tremulousness. Complains of nausea Head: Normocephalic, atraumatic. Ears, Nose and Throat System: No evidence of Otitis or Mastoiditis. No epistaxis or discharge Eyes System: Pupils equal, round, and reactive. Extraocular muscles intact. Neck: Supple, without adenopathy, No jugular venous distention. No thyromegaly , neck mass, or prior surgery apparent. Respiratory System: Chest clear to auscultation. Cardiovascular System: Heart with regular rate and rhythm. No murmur. GI System: Abdomen soft, mild tenderness right upper quadrant. Hypo-active bowel sounds present. Musculoskeletal System: limbs with no pedal edema. Full distal pulses. Neurological System: No discernable sensory deficit. No aphasia Psychiatric System: Conversation is rational Results - Labs CBC & BMP: 05/22/17 13:11 05/22/17 08:00 Lab Results: I have reviewed the past 24 hour labs
--- NOTE | 2017-05-24 11:09 | XRay Report ---
Exam: XR chest 1V portable Date: 05/24/2017 10:37 AM Indication: Central venous catheter placement Comparison: 05/19/2017 Technical: AP Findings: A right IJ catheter has been placed this tip is in the right atrium. Bilateral effusions are present. Mild cardiomegaly with shunt vascularity. Surgical clips present in the right upper arm. External cardiac leads are present. No pneumothorax ASVD is present. Impression: 1. Interval placement right-sided catheter with the distal tip in the right atrium 2. Component of underlying CHF suspected with low volume effusions and shunt vascularity. PROCEDURE INTERPRETED AT [facility] DEPARTMENT OF RADIOLOGY Final Report Signed by: Dr. Tom Warner
--- NOTE | 2017-05-24 12:48 | Nephrology Progress Note ---
Nephrology - PN: Subj Interval history: Patient denies shortness of breath. Review of systems GI she denies nausea or vomiting Physical exam general patient chronically ill-appearing, she has no pitting edema Assessment/plan 1. End-stage renal disease-we will continue hemodialysis support 2. Hypotension-patient has been started on Florinef and had her Midodrin increased to a maximal dose, she apparently had some significant deterioration when she lost her IV access and was without levo fed. 3. UTI-continue antibiotics Exam (PN)-Nephrology - Vital Signs Vital signs: Period Temp Pulse Resp BP Sys/Bustos Pulse Ox Last 24 Hr 97.0 F-99.3 F 63-85 12-24 56-115/13-65 94-99 - Lab 05/22/17 13:11 05/22/17 08:00 Most recent lab results Calcium 9.2 MG/DL (8.5-10.1) 05/22/17 08:00 Magnesium 2.5 MG/DL (1.8-2.4) H 05/22/17 08:00
[2017-05-24] MEDS ORDERED: SODIUM CHLORIDE 0.9% 250 ML IV ONE ×2 (16:01→22:06)
[2017-05-24] MEDS: LEVOTHYROXINE 100 MCG VIAL IV SCH (16:56)
[2017-05-24] MEDS: ALBUMIN 25% 25 GM in PREMIX 1 EACH IV SCH ×2 (17:13→22:35)
[2017-05-24] MEDS: DEXAMETHASONE 4 MG/1 ML VIAL IV SCH (19:35)
[2017-05-24] MEDS: BIOTIN 5000 MCG PO SCH (19:44)
[2017-05-24] MEDS: LEVOFLOXACIN 500 MG TABLET PO SCH (19:44)
[2017-05-24 21:58] LABS: Basophils % 0.2 % (0.0-0.8); Eosinophils % 0.1 % (0.00-10.9); Hematocrit 38.4 VOL% (35.7-47.0); Hemoglobin 12.8 GM/DL (12.0-16.0); Immature Granulocytes % 1.2 %; Immature Granulocytes Absolute 0.18 #; Lymphocytes # 0.6 10*3/uL (1.4-4.0); Mean Corpuscular HGB Conc 33.3 GM/DL (32-36); Mean Corpuscular Hemoglobin 36 PG (27-34); Mean Corpuscular Volume 106.4 FL (87-102); Mean Platelet Volume 12.5 FL (9.6-12.0); Monocytes # 0.6 10*3/uL (0.11-0.8); Monocytes % 4.2 % (1.7-12.7); NRBC # 0.21 10*3/uL; Neutrophils # 13.1 10*3/uL (1.4-7.4); Neutrophils % 90.3 % (38.7-73.9); Platelet Count 116 T/CUMM (130-400); Red Blood Count 3.61 MC/CUMM (3.8-5.5); Red Cell Distribution Width 19.3 % (9.3-17.3); White Blood Count 14.5 T/CUMM (4-12)
[2017-05-24] MEDS ORDERED: VANCOMYCIN INJ 1,000 MG in SODIUM CHLORIDE 0.9% 250 ML IV ONE (22:00)
[2017-05-24 22:12] LABS: ABG Base Excess -15.8 MMOL/L (-2.5-2.5); ABG HCO3 12.5 MMOL/L (20-26); ABG Oxygen Saturation 88.4 % (95-100); ABG PCO2 27.6 MM HG (35-48); ABG PH 7.212 (7.35-7.45); ABG PO2 68.1 MM HG (80-95); ABG TCO2 10.1 MMOL/L (23-27)
--- NOTE | 2017-05-24 22:22 | Event Note ---
We were called by nurses reporting patient's blood pressure was 50-60 systolic. She was admitted with hypotension and has been treated with Florinef and Midrin. Chest x-ray this morning was clear. 2D echo from May 12 was normal with no effusion. She has been on Levaquin for UTI which grew E. coli pansensitive on May 19 however refused her oral Levaquin today. Her only complaints is soreness everywhere when she is touched and weakness. On exam she has no JVD, lungs are clear, she is awake, alert, oriented. She has 3+ edema tibial, dependent thigh, upper extremities. Labs done this evening showed white count 14.5, platelets 116. Chemistries are still pending. On May 21 lactic acid was 1.7. A central line was placed by nurse practitioner for closer monitoring of BP which now is showing a blood pressure of 104/93 suggesting the cuff readings are probably not completely accurate. Initially I spoke with nephrology Dr. Kessler who suggested a 250 cc saline bolus with 50 cc an hour saline however her pressure now is up so we will hold on this. Blood gases are showing pH 7.212 PCO2 27.6 bicarb 12.5 base excess - 15.8. Chemistries are pending. Blood cultures have been drawn. We are broadening antibiotic coverage with vancomycin 1 g IV single dose given plus meropenem 500 IV every 12. Blood cultures, pro-calcitonin, lactic acid and chemistries have been ordered. Her chemistries are still pending. Will discuss metabolic acidosis with nephrology again Dr. Kessler and see how he wants to deal with this tonight. When she gets dialysis tomorrow this will probably be normalized.
[2017-05-24 22:25] LABS: Alanine Aminotransferase 351 U/L (13-56); Albumin 3.5 G/DL (3.4-5.0); Alkaline Phosphatase 504 U/L (45-117); Aspartate Amino Transferase 362 U/L (0-37); Blood Urea Nitrogen 42 MG/DL (7-18); Calcium 9.6 MG/DL (8.5-10.1); Glucose 264 MG/DL (74-106); Magnesium 2.4 MG/DL (1.8-2.4); Sodium 136 MMOL/L (136-145); Total Protein 6.2 G/DL (6.4-8.3); Troponin I Only 0.034 NG/ML (0.00-0.045)
[2017-05-24] MEDS ORDERED: SODIUM BICARB INJ 50 MEQ in SODIUM CHLORIDE 0.45% 1,000 ML IV SCH (22:30)
[2017-05-24] MEDS ORDERED: SODIUM CHLORIDE 0.9% 1,000 ML IV SCH (22:30)
[2017-05-24] MEDS: MEROPENEM 500 MG in SODIUM CHLORIDE 0.9% 100 ML IV SCH (22:34)
[2017-05-24 22:35] LABS: Lactic Acid 7.6 MMOL/L (0.4-2.0)
[2017-05-24] MEDS ORDERED: SODIUM BICARBONATE 50 MEQ/50 ML SYRINGE IV ONE ×2 (22:49→22:50)
[2017-05-24] MEDS ORDERED: ROCURONIUM 100 MG/10 ML VIAL IV ONE ×2 (22:49→22:57)
[2017-05-24] MEDS ORDERED: ETOMIDATE 20 MG/10 ML VIAL IV ONE ×2 (22:51→22:57)
[2017-05-24] MEDS ORDERED: EPINEPHrine 1 MG/ML VIAL ONE (22:57)
[2017-05-24] MEDS ORDERED: PHENYLEPHRINE DRIP 40 MG/250 ML PREMIX IV SCH (23:30)
[2017-05-24 23:48] LABS: ABG Base Excess -16.8 MMOL/L (-2.5-2.5); ABG Oxygen Saturation 96.4 % (95-100); ABG PCO2 46.3 MM HG (35-48); ABG TCO2 12.7 MMOL/L (23-27)
[2017-05-24] MEDS: PROPOFOL 1,000 MG/100 ML BOTTLE IV SCH (23:51)
[2017-05-24 23:52] LABS: ABG PH 7.075 (7.35-7.45)
[2017-05-24] MEDS: SODIUM ACETATE 150 MEQ in DEXTROSE 5% 1,000 ML IV SCH (23:52)
[2017-05-24] MEDS: fentaNYL INJ 1,250 MCG in SODIUM CHLORIDE 0.9% 225 ML IV SCH (23:52)
--- NOTE | 2017-05-24 23:57 | Event Note ---
Note patient's condition further deteriorated. She became more lethargic and respiratory rate slowed and became lethargic. O2 sat was 90% however it was obvious she was wearing out from basically hyperventilating to compensate for her metabolic acidosis. Lactic acid level returned elevated 7.6. BP has stabilized. She was intubated successfully by the nurse practitioner we will start a bicarb drip. Monitor gases and pH through ABGs and adjust respiratory rate along with bicarb drip to address her metabolic acidosis. She has been started on meropenem and vancomycin for possible sepsis and septic shock.
[2017-05-25] MEDS ORDERED: SODIUM BICARBONATE 50 MEQ/50 ML SYRINGE IV ONE ×4 (00:02→06:18)
[2017-05-25] MEDS: NOREPINEPHRINE 8 MG in SODIUM CHLORIDE 0.9% 242 ML IV SCH (01:00)
[2017-05-25] MEDS: PHENYLEPHRINE INJ 160 MG in SODIUM CHLORIDE 0.9% 234 ML IV SCH ×4 (01:01→20:42)
[2017-05-25 01:18] LABS: ABG HCO3 13.8 MMOL/L (20-26); ABG Oxygen Saturation 96.9 % (95-100); ABG PCO2 33.3 MM HG (35-48)
[2017-05-25 01:19] LABS: ABG PH 7.208 (7.35-7.45)
[2017-05-25 02:19] LABS: ABG Base Excess -14.3 MMOL/L (-2.5-2.5); ABG HCO3 13.6 MMOL/L (20-26); ABG Oxygen Saturation 94.1 % (95-100); ABG PCO2 29.1 MM HG (35-48); ABG PH 7.231 (7.35-7.45); ABG PO2 84.7 MM HG (80-95)
--- NOTE | 2017-05-25 04:12 | Event Note ---
Arterial line insertion procedure note: Left groin was prepped and cleaned. Sterile technique utilized. Left femoral artery palpated. Needle inserted x1 attempt with red, pulsatile blood return. Wire fed without resistance. Needle removed with tip intact. Catheter fed over wire without resistance. Wire removed intact. Red, pulsatile blood return noted from end of catheter hub. Pressure tubing connected and zeroed. Opening systolic blood pressure 120's with sharp waveform. Catheter sutured in place and insertion site dressed. No redness, swelling, drainage, or hematoma @ insertion site. Intubation procedure note: Patient was hypoxic with oxygen saturations in high 80's and low 90's, dusky colored, and hard to arouse. Decision was made to intubate patient. Patient was hyperoxygenated with 10LPM per NC while intubation drugs and equipment were prepared. After patient was induced, respirations was supported with 15LPM per BVM. Complete relaxation and paralysis noted. Mac 4 was placed in patient's airway. Vocal cords identified. 7.5 ETT passed through cords without resistance. Cuff inflated with 6mL of air and respirations resumed via BVM. Fogging noted of ETT. Color change of CO2 detector. No epigastric sounds auscultated. Bilateral breath sounds auscultated to all natarajan. Symmetrical rise and fall of chest noted. Sharp waveform of Sp02 with 97% readings. Total airway time: < 6 seconds. Lowest oxygen saturation recorded 95%.
[2017-05-25 04:44] LABS: ABG Base Excess -16.6 MMOL/L (-2.5-2.5); ABG HCO3 12.1 MMOL/L (20-26); ABG Oxygen Saturation 94.2 % (95-100); ABG PCO2 27.5 MM HG (35-48); ABG PO2 89.2 MM HG (80-95); ABG TCO2 9.7 MMOL/L (23-27)
[2017-05-25 04:47] LABS: Basophils # 0.1 10*3/uL (0.0-0.2); Basophils % 0.4 % (0.0-0.8); Eosinophils % 0.3 % (0.00-10.9); Hematocrit 37.2 VOL% (35.7-47.0); Hemoglobin 12.6 GM/DL (12.0-16.0); Immature Granulocytes % 3.8 %; Immature Granulocytes Absolute 0.53 #; Lymphocytes # 0.9 10*3/uL (1.4-4.0); Lymphocytes % 6.4 % (21.3-54.2); Mean Corpuscular HGB Conc 33.9 GM/DL (32-36); Mean Corpuscular Hemoglobin 36 PG (27-34); Mean Corpuscular Volume 107.2 FL (87-102); Mean Platelet Volume 12.6 FL (9.6-12.0); Monocytes # 0.4 10*3/uL (0.11-0.8); Monocytes % 2.9 % (1.7-12.7); NRBC # 0.53 10*3/uL; Neutrophils # 12.1 10*3/uL (1.4-7.4); Neutrophils % 86.2 % (38.7-73.9); Red Blood Count 3.47 MC/CUMM (3.8-5.5); Red Cell Distribution Width 19.9 % (9.3-17.3)
[2017-05-25 04:48] LABS: ABG PH 7.194 (7.35-7.45)
[2017-05-25 04:49] LABS: Platelet Count 95 T/CUMM (130-400)
[2017-05-25] MEDS: NOREPINEPHRINE 16 MG in SODIUM CHLORIDE 0.9% 234 ML IV SCH ×3 (05:06→19:01)
[2017-05-25 05:14] LABS: Calcium 9.1 MG/DL (8.5-10.1)
[2017-05-25 05:15] LABS: Magnesium 2.5 MG/DL (1.8-2.4); Potassium 5.4 MMOL/L (3.5-5.1)
[2017-05-25 05:27] LABS: Band Neutrophils 1 % (0-10); Hypochromasia 1+; Lymphocytes 12 % (20-55); Nucleated Red Blood Cells 5 (0-5); Segmented Neutrophils 85 % (50-85); Total Cells Counted 100
[2017-05-25 05:28] LABS: Anisocytosis 1+; Burr Cells Slight; Macrocytosis 1+; Polychromasia Slight
[2017-05-25] MEDS: ALBUMIN 25% 25 GM in PREMIX 1 EACH IV SCH (05:33)
[2017-05-25] MEDS: DEXAMETHASONE 4 MG/1 ML VIAL IV SCH ×2 (05:56→17:48)
[2017-05-25] MEDS: LEVOTHYROXINE 100 MCG VIAL IV SCH (06:17)
--- NOTE | 2017-05-25 06:23 | Nephrology Progress Note ---
Nephrology - PN: Subj Interval history: Patient's condition continued to decline on last night. She became more hypotensive. Fluid boluses given. She required ventilation last night. She has been acidotic and has evidence of sepsis. She is now on broad-spectrum antibiotics. Plan for hemodialysis today. Of note, family member members from out of [place] have been updated on Ms. Mccabe's condition and are in route to see the patient. Exam (PN)-Nephrology - Vital Signs Vital signs: Period Temp Pulse Resp BP Sys/Bustos Pulse Ox Last 24 Hr 97.1 F-99.3 F 75-114 12-30 50-143/14-82 92-100 - General Appearance General appearance: chronically ill, intubated EENT: ATNC Respiratory: clear Cardiology: regular rate, regular rhythm Gastrointestinal: normoactive bowel sounds, no tenderness - Lab 05/25/17 04:31 05/25/17 04:31 Most recent lab results ABG pH 7.194 (7.35-7.45) L* 05/25/17 04:31 ABG pCO2 27.5 MM HG (35-48) L 05/25/17 04:31 ABG pO2 89.2 MM HG (80-95) 05/25/17 04:31 ABG HCO3 12.1 MMOL/L (20-26) L 05/25/17 04:31 ABG O2 Saturation 94.2 % (95-100) L 05/25/17 04:31 Calcium 9.1 MG/DL (8.5-10.1) 05/25/17 04:31 Phosphorus 5.2 MG/DL (2.5-4.9) H 05/25/17 04:31 Magnesium 2.5 MG/DL (1.8-2.4) H 05/25/17 04:31 Assessment and Plan (1) Metabolic acidosis Status: Acute Assessment and plan: Continue to give bicarb infusion and push amps of bicarb's. We will plan for hemodialysis this morning. Current Visit: Yes (2) Sepsis Status: Acute Assessment and plan: Broad-spectrum antibiotics per Current Visit: Yes (3) Diabetes mellitus Status: Chronic Current Visit: No Qualifiers: Diabetes mellitus type: type 2 Chronic kidney disease stage: on chronic dialysis (4) ESRD (end stage renal disease) on dialysis Status: Chronic Assessment and plan: Hemodialysis today. Patient's condition is very critical. Current Visit: No (5) Hypotension Status: Acute Current Visit: No (6) Urinary tract infection Status: Acute Current Visit: Yes
--- NOTE | 2017-05-25 07:07 | Pulmonology Consult Note ---
Assessment and Plan (1) Diabetes mellitus Status: Chronic Assessment and plan: Patient has significant diabetes and her glucose is 349 this morning. Current Visit: No Qualifiers: Diabetes mellitus type: type 2 Chronic kidney disease stage: on chronic dialysis (2) ESRD (end stage renal disease) on dialysis Status: Chronic Assessment and plan: Patient has ongoing dialysis. Current Visit: No (3) Hypotension Status: Acute Assessment and plan: Patient has had labile blood pressure and now she is somewhat septic. Current Visit: No (4) Urinary tract infection Status: Acute Assessment and plan: The patient had E. coli growing in her urine. The E. coli was sensitive to antibiotics. Current Visit: Yes (5) Metabolic acidosis Status: Acute Assessment and plan: The patient has a metabolic acidosis from her glucose, hypotension, and renal failure. Current Visit: Yes (6) Sepsis Status: Acute Assessment and plan: Patient is getting fluids and broad-spectrum antibiotics. Current Visit: Yes (7) Respiratory arrest Status: Acute Assessment and plan: The patient had a near respiratory arrest and had to be intubated. We will continue ventilatory support. Current Visit: Yes History of Present Illness Chief complaint: Ventilator management History of present illness: Ms. Levin is a 66 year old white female that has a long history of diabetes hypertension end-stage renal disease on dialysis. Lately she apparently has had orthostatic hypotension and has had trouble with her blood pressure. She came in last weekend with weakness and hypotension and apparently has struggled all week. Yesterday her blood pressure got lower and she was moved to the ICU and ultimately had to be intubated. She has been getting some pressors. She has a metabolic acidosis and is felt to have septic shock. She is on broad- spectrum antibiotics now and getting ventilatory support. She will get hemodialysis today if her blood pressure allows. She has adequate oxygenation on the ventilator. Her chest x-ray does show bibasilar atelectasis. Home Medications Medication Instructions Recorded Confirmed Type Calcium Acetate 2 tablet PO TID W/MEALS 11/12/15 05/20/17 History Biotin 5,000 mcg PO DAILY 05/10/17 05/20/17 History Insulin Glargine [Lantus] 34 unit SUBCUT BEDTIME 05/10/17 05/20/17 History Levothyroxine Tab [Synthroid Tab] 112 mcg PO DAILY@0700 #30 tablet 05/17/1712/31 Rx Midodrine [Proamatine] 5 mg PO TID #90 tablet 05/17/17 05/20/17 Rx Allergies Allergy/AdvReac Type Severity Reaction Status Date / Time codeine Allergy Unknown/Unable Verified 11/14/15 20:29 to obtain cotton Allergy Unknown/Unable Uncoded 05/19/17 17:48 to obtain ROS unobtainable: due to endotracheal tube (She is unable to give any history.) Exam (Pulmonay) H&P - Constitutional Vitals: Period Temp Pulse Resp BP Sys/Bustos Pulse Ox Last 24 Hr 97.1 F-99.3 F 78-114 12-30 50-143/14-82 84-100 General appearance: normal weight, mild distress (She is on the ventilator and looks somewhat chronically ill.) - Head Head exam: Present: normal inspection, normocephalic - Eye Eye exam: Present: EOMI. Absent: scleral icterus Pupils: Present: TIM - ENT ENT exam: Present: other (ET tube is in good position) - Neck Neck exam: Absent: lymphadenopathy, thyromegaly - Respiratory Respiratory exam: Present: rhonchi, other (She has coarse breath sounds bilaterally with bilateral rhonchi.) - Cardiovascular Cardiovascular exam: Present: regular rate and rhythm, tachycardia. Absent: gallop, systolic murmur - GI/Abdominal GI/Abdominal exam: Present: hypoactive bowel sounds, soft. Absent: organomegaly , tenderness - Extremities Exam Extremities exam: Absent: calf tenderness, edema - Neurological Exam Neurological exam: Present: other (Patient is sedated at present) - Psychiatric Psychiatric exam: Absent: anxious - Skin Skin exam: Present: warm, dry Medical,Surgical,& Family Hx - Medical History Cardio: No history of: Aneurysm, Cardiac Dysrhythmia, Cerebrovascular Disease, Congenital Heart Disease, CHF, CAD, Hypertension, [place], Pacemaker, PVD, Valvular Heart Disease, Cardiovascular Problems Neurology: No history of: Brain Aneurysm, Cerebral Hemorrhage, Cerebrovascular Accident , Cerebral Palsy, Dementia, Migraine, Multiple Sclerosis, Parkinson's Disease, Peripheral Neuropathy, Seizures, TIA, Vertigo, Neurologocal Cancer HEENT: History of: Ear Problem (stops up), HEENT Problems (states problem swallowing, and sore throat) Endocrine: History of: Diabetes Mellitus (IDDM), Thyroid Disorder ( HYPOTHYROIDISM) No history of: Dyslipidemia Respiratory: History of: Obstructive Sleep Apnea, Respiratory Problems (SOB) No history of: Asthma, Bronchitis, COPD, Intubation, Pulmonary Embolism, Pulmonary Hypertension, Pneumonia, Lung Cancer Renal: History of: Dialysis, Renal Failure, Renal Problems Gastrointestinal: History of: GERD Musculoskeletal: History of: Back/Neck Problems (back surgery x2) No history of: Amputation - Surgical History Cardiac Surgeries: Sugical HX of: Cardiac Catheterization (negative results in 1994) Patient Denies: Femoral-Popliteal Bypass Graft, Cardiac Surgery, Carotid Endarterectomy, Internal Defibrillator, Vascular Access Devices Thoracic Surgeries: Patient denies;: Lobectomy Neurologic Surgeries: Patient denies: Brain Aneurysm, Cerebral Hemorrhage, Neurologic Surgery HEENT Surgeries: Patient denies: Carotid Endarterectomy Abdominal Surgeries: Patient denies: Abdominal Surgery, Splenectomy Reproductive Surgeries: Surgical HX of;: Section, Hysterectomy Patient denies;: Genitourinary Surgery Orthopedic Surgeries: Patient denies;: Implanted Devices - Family History Family History: Denies;: Family Heart Disease - Social History Smoking Status: Never smoker Frequency of Alcohol Use: None Type of Drug Use: None Results - Labs CBC & BMP: 05/25/17 04:31 05/25/17 04:31 Labs: Latest ABGs show PO2 of 89 with a PCO2 of 27 and pH of 7.19 - Diagnostic Findings Procedure: Chest x-ray: image reviewed by me, report reviewed by me (Chest x- ray shows mild bibasilar atelectasis)
--- NOTE | 2017-05-25 07:13 | EKG Report ---
Stationary ECG Study [facility] Test Date: 05/24/2017 10:24:22 PM Pat Name: JU KELLY Department: Room: 107 Gender: F Child Custody Evaluator: CHRISTY RN : 1950 Requested by: Mai Gomes Order Number: [id number] Reading MD: MARIA DEL CARMEN HOLLEY Intervals [place] Rate: 103 P: 240 TX: 254 QRS: 62 QRSD: 138 T: 58 QT: 329 QTc: 389 Interpretive Statements SINUS TACHYCARDIA WITH PROLONGED TX INTERVAL INDETERMINATE AXIS RIGHT BUNDLE BRANCH BLOCK Electronically Signed On 05-25-17 12:25:07 CDT by MARIA DEL CARMEN HOLLEY [email or web address]
[2017-05-25 07:32] LABS: ABG Base Excess -12.3 MMOL/L (-2.5-2.5); ABG Oxygen Saturation 99.4 % (95-100); ABG PCO2 28.3 MM HG (35-48); ABG PO2 226.2 MM HG (80-95); ABG TCO2 13.9 MMOL/L (23-27)
[2017-05-25] MEDS: INSULIN REGULAR 100 UNIT/ML SUBCUT SCH ×4 (08:46→20:48)
[2017-05-25] MEDS ORDERED: ALBUMIN 25% 25 GM in PREMIX 1 EACH IV ONE (09:00)
[2017-05-25] MEDS: FLUCONAZOLE INJ 200 MG in PREMIX 1 EACH IV SCH (09:09)
--- NOTE | 2017-05-25 10:15 | XRay Report ---
History: Hypotension Date: 05/24/2017 at 9:35 PM Study: Chest x-ray AP portable Comparison exam: 05/24/2017 at 10:49 AM The right IJ central line is unchanged in position. There is continued cardiomegaly. The mediastinal contours are unchanged. The pulmonary vasculature is slightly prominent. There is patchy and hazy edema/infiltrate in the lower lungs which is slightly increased. There is mild right greater than left pleural effusion as before. There is no pneumothorax. Osseous structures are unchanged. Impression: Increasing bibasilar pulmonary edema/infiltrate compared to the previous study PROCEDURE INTERPRETED AT [facility] DEPARTMENT OF RADIOLOGY Final Report Signed by: Dr. Odessa Rg
--- NOTE | 2017-05-25 10:18 | XRay Report ---
History: Endotracheal tube placement Date: 05/24/2017 at 11:00 PM Study: Chest x-ray single view portable Comparison exam: 05/24/2017 at 9:35 PM The endotracheal tube tip is well-positioned over the trachea superior to the princess. There is continued cardiomegaly. There is continued patchy and hazy edema in the lower lungs, though this is the same or slightly improved. Mild right greater than left pleural effusion persists, similar. No interval worsening otherwise. Impression: The endotracheal tube is well-positioned. Perhaps mildly improved aeration in the lower lungs compared to the earlier study PROCEDURE INTERPRETED AT [facility] DEPARTMENT OF RADIOLOGY Final Report Signed by: Dr. Odessa Rg
--- NOTE | 2017-05-25 10:21 | XRay Report ---
History: Patient on ventilator Date: 05/25/2017 Study: Chest x-ray AP portable Comparison exam: 05/24/2017 The nasogastric tube enters the stomach. The right IJ central line and endotracheal tube remain in satisfactory position. There is continued cardiomegaly. The midsternal contours are similar. There is continued hazy bibasilar edema and mild bilateral pleural effusion, the same or slightly improved. There is no interval worsening. Osseous structures are unchanged. Impression: Slightly improved aeration in the lung bases compared to the earlier study PROCEDURE INTERPRETED AT [facility] DEPARTMENT OF RADIOLOGY Final Report Signed by: Dr. Odessa Rg
[2017-05-25] MEDS: BIOTIN 5000 MCG PO SCH (10:29)
[2017-05-25] MEDS: FLUDROCORTISONE 0.1 MG TABLET PO SCH ×2 (10:30→20:48)
[2017-05-25] MEDS: MIDODRINE 5 MG TABLET PO SCH ×3 (10:30→20:48)
[2017-05-25] MEDS: CALCIUM ACETATE 667 MG CAPSULE PO SCH ×3 (10:34→17:50)
--- NOTE | 2017-05-25 11:14 | Hospitalist Progress Note ---
Assessment and Plan (1) ESRD (end stage renal disease) on dialysis Status: Chronic Assessment and plan: The patient continues on intensive care support. The patient's family is considering code alternatives. The patient is receiving IV antibiotics for lactic acidosis. Current Visit: No Hospitalist: Subjective Interval history: Mrs. Levin continues progressive downhill course. The patient has had hypotension despite giving albumin, steroids, and volume infusion. The patient is presently on ultrafiltration dialysis. I coordinated care with Dr. Almeida and with Dr. Francis. I had family conference with the patient's son and reviewed options for CODE STATUS. At the present time he is in contact with other siblings to reach a consensus. Exam - Constitutional Vitals: Period Temp Pulse Resp BP Sys/Bustos Pulse Ox Last 24 Hr 97.1 F-99.3 F 79-114 12-30 50-143/16-82 84-100 Exam: Constitutional System: Mild distress. No tremulousness. The patient is presently intubated and mechanically ventilated Head: Normocephalic, atraumatic. Ears, Nose and Throat System: No evidence of Otitis or Mastoiditis. No epistaxis or discharge Eyes System: Pupils equal, round, and reactive. Extraocular muscles intact. Neck: Supple, without adenopathy, No jugular venous distention. There is a right internal jugular central venous line. Respiratory System: Chest clear to auscultation. Cardiovascular System: Heart with regular rate and rhythm. No murmur. GI System: Abdomen soft, mild tenderness right upper quadrant. Hypo-active bowel sounds present. The patient is unresponsive. Results - Labs CBC & BMP: 05/25/17 04:31 05/25/17 04:31 Lab Results: I have reviewed the past 24 hour labs
[2017-05-25] MEDS: CLOTRIMAZOLE 1% CREAM 15 GM TUBE TOP SCH ×3 (14:50→20:20)
--- NOTE | 2017-05-25 15:20 | Dialysis Note ---
Dialysis Note - Dialysis Note Patient blood pressure became low during dialysis but had to be returned despite fluid bolus as well as albumin. At this time patient is not stable for further dialysis.
[2017-05-25] MEDS: SODIUM ACETATE 150 MEQ in DEXTROSE 5% 1,000 ML IV SCH ×2 (19:57→21:16)
[2017-05-26] MEDS: MEROPENEM 500 MG in SODIUM CHLORIDE 0.9% 100 ML IV SCH (00:32)
[2017-05-26] MEDS: PROPOFOL 1,000 MG/100 ML BOTTLE IV SCH ×2 (00:33→01:35)
[2017-05-26] MEDS: PHENYLEPHRINE INJ 160 MG in SODIUM CHLORIDE 0.9% 234 ML IV SCH ×2 (00:33→05:08)
[2017-05-26] MEDS: fentaNYL INJ 1,250 MCG in SODIUM CHLORIDE 0.9% 225 ML IV SCH ×2 (00:34→02:54)
[2017-05-26] MEDS: NOREPINEPHRINE 16 MG in SODIUM CHLORIDE 0.9% 234 ML IV SCH ×2 (02:48→09:30)
[2017-05-26 03:33] LABS: ABG Base Excess -5.7 MMOL/L (-2.5-2.5); ABG HCO3 18.2 MMOL/L (20-26); ABG Oxygen Saturation 98.9 % (95-100); ABG PCO2 30.9 MM HG (35-48); ABG PH 7.387 (7.35-7.45); ABG PO2 142.3 MM HG (80-95); ABG TCO2 19.1 MMOL/L (23-27)
[2017-05-26 03:38] LABS: Basophils # 0.1 10*3/uL (0.0-0.2); Basophils % 0.3 % (0.0-0.8); Eosinophils % 0.1 % (0.00-10.9); Hematocrit 36.3 VOL% (35.7-47.0); Hemoglobin 12.1 GM/DL (12.0-16.0); Immature Granulocytes % 2.2 %; Immature Granulocytes Absolute 0.47 #; Lymphocytes # 1.3 10*3/uL (1.4-4.0); Lymphocytes % 6.2 % (21.3-54.2); Mean Corpuscular HGB Conc 33.3 GM/DL (32-36); Mean Corpuscular Hemoglobin 35 PG (27-34); Mean Corpuscular Volume 104.9 FL (87-102); Mean Platelet Volume 11.8 FL (9.6-12.0); Monocytes # 1.5 10*3/uL (0.11-0.8); Monocytes % 6.9 % (1.7-12.7); Neutrophils # 18.4 10*3/uL (1.4-7.4); Neutrophils % 84.3 % (38.7-73.9); Red Blood Count 3.46 MC/CUMM (3.8-5.5); Red Cell Distribution Width 20.2 % (9.3-17.3); White Blood Count 21.8 T/CUMM (4-12)
[2017-05-26 03:48] LABS: Platelet Count 60 T/CUMM (130-400)
[2017-05-26 03:51] LABS: Albumin 3.6 G/DL (3.4-5.0); Bilirubin,Total 3.7 MG/DL (0.2-1.0); Calcium 8.5 MG/DL (8.5-10.1); Magnesium 2.4 MG/DL (1.8-2.4); Osmolality,Calculated 300.7 MOS/KG (273-304); Potassium 4.6 MMOL/L (3.5-5.1); Total Protein 6.1 G/DL (6.4-8.3)
[2017-05-26] MEDS ORDERED: MINERAL OIL/PETROLATUM OPH OINT 3.5 GM TUBE BOTH EYES PRN (03:54)
[2017-05-26 04:01] LABS: Hypochromasia 2+; Platelet Estimate Decreased
[2017-05-26 04:13] LABS: Lactic Acid 7.5 MMOL/L (0.4-2.0)
[2017-05-26 04:53] LABS: Anisocytosis 1+; Band Neutrophils 4 % (0-10); Lymphocytes 5 % (20-55); Macrocytosis 1+; Metamyelocytes 2 %; Nucleated Red Blood Cells 8 (0-5); Polychromasia Few; Segmented Neutrophils 83 % (50-85); Total Cells Counted 100
[2017-05-26] MEDS: LEVOTHYROXINE 100 MCG VIAL IV SCH (06:20)
[2017-05-26] MEDS: DEXAMETHASONE 4 MG/1 ML VIAL IV SCH (06:20)
--- NOTE | 2017-05-26 07:11 | Pulmonology Progress Note ---
Pulmonary - PN: Subj Interval history: Patient is a 66-year-old white lady that has a long history of diabetes, hypertension, and end-stage renal disease. She has had problems with orthostasis also. She came in with weakness and altered mental status and problems with her blood pressure. She has been felt to be septic and now she is on the ventilator with respiratory insufficiency. She is still requiring multiple pressors but does look a little more stable on the ventilator. She was not able to dialyze yesterday but will try to dialyze today. Her oxygenation is better and she is little more stable at present. Exam (Progress Note) - Constitutional Vitals: Period Temp Pulse Resp BP Sys/Bustos Pulse Ox Last 24 Hr 97.0 F-98.0 F 82-142 11-24 62-124/22-50 87-98 Exam: General appearance: normal weight, no distress (She is on the ventilator and looks somewhat chronically ill. She does look much more comfortable on the ventilator.) - Head Head exam: Present: normal inspection, normocephalic - Eye Eye exam: Present: EOMI. Absent: scleral icterus Pupils: Present: TIM - ENT ENT exam: Present: other (ET tube is in good position) - Neck Neck exam: Absent: lymphadenopathy, thyromegaly - Respiratory Respiratory exam: Present: She has good breath sounds bilaterally although there is still a little coarse with some rhonchi. - Cardiovascular Cardiovascular exam: Present: regular rate and rhythm. Blood pressure is a little more stable. Absent: gallop, systolic murmur - GI/Abdominal GI/Abdominal exam: Present: hypoactive bowel sounds, soft. Absent: organomegaly , tenderness - Extremities Exam Extremities exam: Absent: calf tenderness, edema - Neurological Exam Neurological exam: Present: other (Patient is sedated at present) - Psychiatric Psychiatric exam: Absent: anxious - Skin Skin exam: Present: warm, dry Results - Labs CBC & BMP: 05/26/17 03:25 05/26/17 03:25 Labs: His PO2 is 142 with a PCO2 of 30 and a pH of 7.38 - Diagnostic Findings Procedure: Chest x-ray: image reviewed by me, report reviewed by me (Chest x- ray still shows mild bibasilar changes.) Assessment and Plan (1) Diabetes mellitus Status: Chronic Assessment and plan: Patient has significant diabetes and her glucose is 347 this morning. Current Visit: No Qualifiers: Diabetes mellitus type: type 2 Chronic kidney disease stage: on chronic dialysis (2) ESRD (end stage renal disease) on dialysis Status: Chronic Assessment and plan: Patient has ongoing dialysis. She was not able to dialyze yesterday but will try today. Her blood pressure looks a little more stable. Current Visit: No (3) Hypotension Status: Acute Assessment and plan: Patient has had labile blood pressure and now she is somewhat septic. She is still getting multiple pressors. Current Visit: No (4) Urinary tract infection Status: Acute Assessment and plan: The patient had E. coli growing in her urine. The E. coli was sensitive to antibiotics. Current Visit: Yes (5) Metabolic acidosis Status: Acute Assessment and plan: The patient has a metabolic acidosis from her glucose, hypotension, and renal failure. Her metabolic acidosis is better today. Current Visit: Yes (6) Sepsis Status: Acute Assessment and plan: Patient is getting fluids and broad-spectrum antibiotics. She does look a little more stable at present. Current Visit: Yes (7) Respiratory arrest Status: Acute Assessment and plan: The patient had a near respiratory arrest and had to be intubated. We will continue ventilatory support. She looks comfortable on assisted ventilation at present. Current Visit: Yes
[2017-05-26] MEDS ORDERED: DEXAMETHASONE 4 MG/1 ML VIAL IV SCH (07:30)
[2017-05-26] MEDS: CALCIUM ACETATE 667 MG CAPSULE PO SCH (08:12)
--- NOTE | 2017-05-26 08:44 | XRay Report ---
History: Patient on ventilator Date: 05/26/2017 Study: Chest x-ray AP portable Comparison exam: 05/25/2017 The endotracheal and nasogastric tubes remain in place. Right IJ central line is unchanged. There is continued cardiomegaly. The mediastinal contours are stable. The pulmonary vasculature is upper normal. There is no pneumothorax. There is continued bibasilar edema/infiltrate and pleural effusion, grossly similar. There is no obvious interval worsening. Osseous structures are similar. Impression: No gross change from the previous study PROCEDURE INTERPRETED AT [facility] DEPARTMENT OF RADIOLOGY Final Report Signed by: Dr. Odessa Rg
[2017-05-26] MEDS: INSULIN REGULAR 100 UNIT/ML SUBCUT SCH ×2 (09:10→14:51)
[2017-05-26] MEDS: FLUCONAZOLE INJ 200 MG in PREMIX 1 EACH IV SCH (09:10)
[2017-05-26] MEDS: MIDODRINE 5 MG TABLET PO SCH (09:11)
[2017-05-26] MEDS: FLUDROCORTISONE 0.1 MG TABLET PO SCH (09:16)
[2017-05-26] MEDS: BIOTIN 5000 MCG PO SCH (09:16)
--- NOTE | 2017-05-26 09:51 | Nephrology Progress Note ---
Nephrology - PN: Subj Interval history: Patient's condition continued to decline on last night. She became more hypotensive. Fluid boluses given. She required ventilation last night. She has been acidotic and has evidence of sepsis. She is now on broad-spectrum antibiotics. Plan for hemodialysis today. Of note, family member members from out of [place] have been updated on Ms. Mccabe's condition and are in route to see the patient. 05/26/2017. Patient was unable to dialyze on yesterday due to hypotension and maxed out on pressor medications. She remains maxed out on pressor medications. Acidosis is improved. Patient is a DO NOT RESUSCITATE. We will reattempt dialysis on tomorrow per family wishes. At this time potassium is stable and acidosis is improved. Exam (PN)-Nephrology - Vital Signs Vital signs: Period Temp Pulse Resp BP Sys/Bustos Pulse Ox Last 24 Hr 97.0 F-98.0 F 82-142 11-22 62-124/22-50 87-96 - General Appearance General appearance: chronically ill, intubated, fatigue, frail EENT: ATNC Neck: supple Respiratory: clear Cardiology: edema, regular rate, regular rhythm Gastrointestinal: normoactive bowel sounds - Lab 05/26/17 03:25 05/26/17 03:25 Most recent lab results ABG pH 7.387 (7.35-7.45) 05/26/17 03:25 ABG pCO2 30.9 MM HG (35-48) L 05/26/17 03:25 ABG pO2 142.3 MM HG (80-95) H 05/26/17 03:25 ABG HCO3 18.2 MMOL/L (20-26) L 05/26/17 03:25 ABG O2 Saturation 98.9 % (95-100) 05/26/17 03:25 Calcium 8.5 MG/DL (8.5-10.1) 05/26/17 03:25 Phosphorus 5.2 MG/DL (2.5-4.9) H 05/25/17 04:31 Magnesium 2.4 MG/DL (1.8-2.4) 05/26/17 03:25 Assessment and Plan (1) Metabolic acidosis Status: Acute Assessment and plan: Acidosis is slowly improving. Continue to give bicarb infusion. We will plan for hemodialysis in the morning. Current Visit: Yes (2) Sepsis Status: Acute Assessment and plan: Broad-spectrum antibiotics per Current Visit: Yes (3) Diabetes mellitus Status: Chronic Current Visit: No Qualifiers: Diabetes mellitus type: type 2 Chronic kidney disease stage: on chronic dialysis (4) ESRD (end stage renal disease) on dialysis Status: Chronic Assessment and plan: Hemodialysis for tomorrow. Patient's condition is very critical. Current Visit: No (5) Hypotension Status: Acute Current Visit: No (6) Urinary tract infection Status: Acute Current Visit: Yes
[2017-05-26 10:52] LABS: CKMB % 4.6 %
[2017-05-26 10:53] LABS: Troponin I Only 3.71 NG/ML (0.00-0.045)
--- NOTE | 2017-05-26 11:48 | Hospitalist Progress Note ---
Assessment and Plan (1) ESRD (end stage renal disease) on dialysis Status: Chronic Assessment and plan: The patient continues on intensive care support. The patient is receiving IV antibiotics for septicemia. Blood cultures are negative so far. Echocardiogram obtained recently revealed good ejection fraction with some diastolic dysfunction and mitral valve stenosis. We will attempt dialysis again tomorrow if she survives today. I did offer an alternative of withdrawing support to her family. Current Visit: No Hospitalist: Subjective Interval history: Mrs. Levin remains on 3 pressors. She stable on the ventilator with adequate gas exchange. She now has DO NOT RESUSCITATE status. Her family has been updated yesterday and told them of our expectation that she is unlikely to survive. Exam - Constitutional Vitals: Period Temp Pulse Resp BP Sys/Bustos Pulse Ox Last 24 Hr 97.0 F-98.0 F 82-142 12-22 69-124/34-50 87-97 Exam: Constitutional System: Mild distress. No tremulousness. The patient is presently intubated and mechanically ventilated Head: Normocephalic, atraumatic. Ears, Nose and Throat System: No evidence of Otitis or Mastoiditis. No epistaxis or discharge Eyes System: Pupils equal, round, and reactive. Extraocular muscles intact. Neck: Supple, without adenopathy, No jugular venous distention. There is a right internal jugular central venous line. Respiratory System: Chest clear to auscultation. Cardiovascular System: Heart with regular rate and rhythm. No murmur. GI System: Abdomen soft, mild tenderness right upper quadrant. Hypo-active bowel sounds present. The patient is unresponsive. Results - Labs CBC & BMP: 05/26/17 03:25 05/26/17 03:25 Lab Results: I have reviewed the past 24 hour labs
[2017-05-26] MEDS ORDERED: MORPHINE 2 MG/1 ML SYRINGE ONE (14:39)
[2017-05-26] MEDS: CLOTRIMAZOLE 1% CREAM 15 GM TUBE TOP SCH (14:50)
[2017-05-26 15:48] VITALS: BP 36/17
[2017-05-26] MEDS ORDERED: MORPHINE 2 MG/1 ML SYRINGE IV ONE (18:39)
--- NOTE | 2017-05-28 13:00 | Physician Query Form ---
CLICK EDIT DOCUMENT TO SELECT QUERY ANSWER --> OK --> SIGN Marta Moon RN Clinical Crew Leader Gluing W) [phone] (f) [phone] [email or web address] PROVIDERS: Make your selection(s) from the choices in EACH section by typing an "x" and enter comments in the comment section. Please use your independent medical judgment in providing your response. This request does not imply that any particular answer is desired or expected. CLINICAL INDICATORS: (Providers should not edit this section) Based on documentation of "Urosepsis" "unable to dialyze on yesterday due to hypotension and maxed out on pressor medications. She remains maxed out on pressor medications" "ESRD" "Acute Sepsis" "Acute respiratory arrest. had to be intubated" Treated with IV Antibiotics, IV Pressors, IV Fluid boluses, and Mechanical Ventilation. Please clarify which, if any, of the following is the etiology of the above symptoms and treatment rendered: ( ) Hypovolemic shock ( X) Septic shock ( ) Cardiogenic shock ( ) Shock due to, please specify etiology: ( ) Hypotension, unknown etiology ( ) Other, please specify: ( ) Clinically unable to determine COMMENTS: PLEASE ALSO DOCUMENT RESPONSE IN PROGRESS NOTES AND/OR DISCHARGE SUMMARY Use of terms such as suspected, likely, or probable (associated with a specific diagnosis that is being evaluated, monitored, or treated as if it exists) are acceptable and can be restated in the discharge summary if not ruled out. MTDD
--- NOTE | 2017-05-28 13:10 | Physician Query Form ---
CLICK EDIT DOCUMENT TO SELECT QUERY ANSWER --> OK --> SIGN Marta Moon RN Clinical Keyboard Specialist W) [phone] (f) [phone] [email or web address] PROVIDERS: Make your selection(s) from the choices in EACH section by typing an "x" and enter comments in the comment section. Please use your independent medical judgment in providing your response. This request does not imply that any particular answer is desired or expected. CLINICAL INDICATORS: (Providers should not edit this section) Based on documentation of "Acute Sepsis" Within the first 24 hours WBC from 7.6 to 17.6. BP on admission 74/42. Diagnosis: Acute Sepsis Please clarify the status of (diagnosis) based on the above: ( X) The above diagnosis was present on admission ( ) The above diagnosis was NOT present on admission ( ) Other, please specify: ( ) Clinically unable to determine COMMENTS: PLEASE ALSO DOCUMENT RESPONSE IN PROGRESS NOTES AND/OR DISCHARGE SUMMARY Use of terms such as suspected, likely, or probable (associated with a specific diagnosis that is being evaluated, monitored, or treated as if it exists) are acceptable and can be restated in the discharge summary if not ruled out. [facility]
--- NOTE | 2017-05-28 13:13 | Physician Query Form ---
CLICK EDIT DOCUMENT TO SELECT QUERY ANSWER --> OK --> SIGN Marta Moon RN Clinical Conservation Science Officer W) [phone] (f) [phone] [email or web address] PROVIDERS: Make your selection(s) from the choices in EACH section by typing an "x" and enter comments in the comment section. Please use your independent medical judgment in providing your response. This request does not imply that any particular answer is desired or expected. CLINICAL INDICATORS: (Providers should not edit this section) Based on conflicting documentation of "hypoxic with oxygen saturations in high 80's and low 90's, dusky colored, and hard to arouse" "near respiratory arrest and had to be intubated" "Acute respiratory arrest" treated with intubation and mechanical ventilation. If possible, please further clarify the type and acuity of respiratory diagnosis : ACUITY: ( ) Acute ( ) Chronic (X ) Acute on Chronic TYPE: ( X) Respiratory failure with hypoxia ( ) Respiratory failure with hypercapnia ( ) Respiratory Arrest ( ) Postprocedural/postoperative respiratory failure ( ) Respiratory Insufficiency ( ) ARDS (Adult/Acute Respiratory Distress Syndrome) ( ) Other, please specify: ( ) Clinically unable to determine Recognized criteria for respiratory failure PH <7.35 or >7.45 PO2 <60 PCO2 >50 RR >24 O2 Sat <90% on RA or <95% on O2 Use of accessory muscles Unable to speak in full sentences Intubation is not required COMMENTS: PLEASE ALSO DOCUMENT RESPONSE IN PROGRESS NOTES AND/OR DISCHARGE SUMMARY Use of terms such as suspected, likely, or probable (associated with a specific diagnosis that is being evaluated, monitored, or treated as if it exists) are acceptable and can be restated in the discharge summary if not ruled out. MTDD
--- NOTE | 2017-06-03 09:41 | Discharge Summary ---
Hospital Course - Hospital Course Hospital Course: The patient was admitted to the hospital with hypotension. The patient has had difficulty with hypotension over the last several months and it has undetermined etiology patient. The patient is on hemodialysis 3 times weekly. After admission to the hospital the patient was stabilized with Levophed infusion. The patient continued on dialysis but we could not wean her successfully from levo fed. The patient had extra volume given but did not improve. We had consultation with her pan puller . The patient worsened in the several days prior to her and had evidence of sepsis syndrome. We were not able to identify an offending organism. The patient continued to deteriorate and her family consented to comfort care. Pressors were discontinued and the patient succumbed to her illness. - Time spent with patient Time with patient DS: Greater than 30 minutes Diagnosis - Discharge Diagnosis (1) ESRD (end stage renal disease) on dialysis Status: Chronic Discharge Plan - Discharge Data Disposition: Condition at Discharge: - Discharge Medications No Action Calcium Acetate 2 tablet PO TID W/MEALS Biotin 5,000 mcg PO DAILY Insulin Glargine [Lantus] 34 unit SUBCUT BEDTIME Levothyroxine Tab [Synthroid Tab] 112 mcg PO DAILY@0700 #30 tablet Midodrine [Proamatine] 5 mg PO TID #90 tablet - Follow Up or Referral - Forms/Instructions DS: Provider Date of admission: 05/19/17 17:03 Primary care physician: . No PCP Attending physician on admission: Lefty Justice MD Consults: 05/19/17 17:49 Consult to Physician [CONS] Routine Comment: Consulting Provider: Vishal Whaley 05/19/17 18:44 Consult to Pastoral Services [CONS] Routine Comment: Pastoral Screen: Request Inbound Customer Service Agent Visit Pastoral Screen Source of Request: Patient 05/25/17 05:14 Consult to Physician [CONS] Routine Comment: vent network management specialist Provider: Consult to Specialist Group: Pulmonology When should Consulting Provider be notified: In am Discharging clinician: Nghia Lui MD
== END 2017-05-26 15:52 | disposition expired | DRG 871 ==
LOC: EDUNIT# → EDBD → N.ED 15:04 → SUATTDRO 17:03 → N.EDINP 17:03 → N.ICU 17:49
PROVIDERS: ADMIT Internal Medicine Infectious Disease; ATTEND Internal Medicine